=== PATIENT | female | born 1970 | race Caucasian/White ===

== ENCOUNTER 2016-09-05 00:19 | Inpatient (IN) | payer BC ==
[2016-09-05] MEDS ORDERED: ONDANSETRON 4 MG/2 ML VIAL ONE (00:39)
[2016-09-05] MEDS ORDERED: NS 1,000 ML IV ONE (00:46)
[2016-09-05] MEDS ORDERED: HYDROmorphONE/DILAUDID 1 MG/ML SYR IVP ONE (00:46)
[2016-09-05] MEDS ORDERED: ONDANSETRON 4 MG/2 ML VIAL IVP ONE (00:55)
[2016-09-05] MEDS ORDERED: IOPAMIDOL (ISOVUE-300) 100 ML BTL IV ONE (00:57)
[2016-09-05 00:59] LABS: % IMMATURE GRANULYOCYTES 0.3 % (0.0-1.1); ABSOLUTE IMMATURE GRANULOCYTES 0.03 10^3/uL (0.00-0.10); ADD DIFF? NO; ADD MORPH? NO; ADD SCAN? NO; ATYPICAL LYMPHOCYTE FLAG 0 (0-99); FRAGMENT RBC FLAG 0 (0-99); HEMATOCRIT 46.3 % (38.0-47.0); HEMOGLOBIN 15.8 g/dL (12.6-16.3); LEFT SHIFT FLG 30 (0-99); LIPEMIA HEMOLYSIS FLAG 90 (0-99); MEAN CELL HEMOGLOBIN 29.6 pg (27.9-34.1); MEAN CELL HEMOGLOBIN CONCENTR. 34.1 g/dL (32.4-36.7); MEAN CELL VOLUME 86.7 fL (81.5-99.8); MEAN PLATELET VOLUME 10.6 fL (8.7-11.7); PLATELET CLUMPS FLAG 0 (0-99); PLATELET COUNT 148 10^3/uL (150-400); RED BLOOD CELL COUNT 5.34 10^6/uL (4.18-5.33); RED CELL DISTRIBUTION WIDTH 13.2 % (11.5-15.2)
[2016-09-05 01:10] LABS: ALANINE AMINOTRANSFERASE 37 IU/L (9-52); ALBUMIN 4.8 g/dL (3.5-5.0); ALKALINE PHOSPHATASE 94 IU/L (38-126); ANION GAP 12 mEq/L (8-16); ASPARTATE AMINOTRANSFERASE 31 IU/L (14-46); BILIRUBIN,TOTAL 0.6 mg/dL (0.1-1.4); BILIRUBIN-CONJUGATED 0.4 mg/dL (0.0-0.5); BILIRUBIN-UNCONJUGATED 0.2 mg/dL (0.0-1.1); CALCIUM 9.1 mg/dL (8.5-10.4); CARBON DIOXIDE 25 mEq/l (22-31); CHLORIDE 107 mEq/L (97-110); CREATININE 0.7 mg/dL (0.6-1.0); GLOMERULAR FILTRATION RATE > 60; GLUCOSE 192 mg/dL (70-100); POTASSIUM 4.3 mEq/L (3.5-5.2); SODIUM 144 mEq/L (134-144); TOTAL PROTEIN 7.9 g/dL (6.3-8.2)
[2016-09-05] MEDS ORDERED: KETOROLAC 15 MG/1 ML SDV ONE (01:44)
[2016-09-05] MEDS ORDERED: LIDOCAINE 2% JELLY 5 ML TUBE ONE (01:55)
[2016-09-05] MEDS ORDERED: LORazepam 2 MG/ML INJ IVP ONE (02:39)
--- NOTE | 2016-09-05 03:11 | PDGENHP ---
History and Physical - Chief Complaint Acute abdominal pain - History of Present Illness Primary surgeon: Dr. Crump Primary oncologist: Dr. Shameka Warren in [facility] HPI: 45-year-old female presenting with acute abdominal pain characterized as sharp, located in the right upper abdomen, associated with constipation, nausea and nonbloody emesis. The patient reportedly vomited 6-7 times on the day of presentation. Her last meal was lasagna at approximately 4:00 p.m. and onset of symptoms was around 7:00 p.m.. She believes she vomited up her entire meal, she was not able to tolerate oral liquids or solids thereafter. Her symptoms have been somewhat alleviated by Toradol and Zofran received in the emergency department. she reports that the character of her symptoms are similar to those she experienced in 2016 with a small-bowel obstruction. She does endorse approximately 1 week worth of constipation with a very small bowel movement on the morning of this presentation. History Information - Allergies/Home Medication List Allergies/Adverse Reactions: CIPRO Allergy (Intermediate, Uncoded 06/04/15 00:04) Rash CLARITHROMYCIN Allergy (Mild, Uncoded 06/04/15 00:04) Vomiting TETRACYCLINE Allergy (Mild, Uncoded 06/04/15 00:04) Vomiting Home Medications: Cholecalciferol Vit D3 [Vitamin D3 2000 units] 3,000 units PO DAILY 03/10/15 [ Last Taken 06/03/15] Multivitamins [Multivitamin (*)] 1 each PO DAILY 03/10/15 [Last Taken 06/03/15] Acetaminophen [Tylenol 325mg (*)] 325 mg PO Q6 PRN 06/03/15 [Last Taken Unknown] Citalopram [CeleXA 20 MG] 40 mg PO DAILY 06/03/15 [Last Taken 06/03/15] Vitamin B Complex [B Complex] 1 each PO DAILY 06/03/15 [Last Taken 06/03/15] I have personally reviewed and updated: family history, medical history, social history, surgical history - Past Medical History Additional medical history: Ovarian cancer, previously treated with carbo Taxol in May 2013, as well as surgical debulking CAD-125 in 2014 was 21. Small- bowel obstruction in 2015 in 2016 - Surgical History Additional surgical history: Hysterectomy and BSO in 2013. Lysis of adhesions June 2015. Gastric sleeve resection. Appendectomy. Cholecystectomy - Family History Additional family history: sister with breast cancer. No recent sick family contacts with GI illnesses - Social History Smoking Status: Never smoked Alcohol Use: Occasionally Drug Use: None Additional social history: independent in her ADLs, recently return from a trip to [place] in July of 2016 Review of Systems ROS: 10pt was reviewed & negative except for what was stated in HPI & below Gastrointestinal: Reports: vomitting, abdominal pain, constipation, nausea Physical Exam Temp Pulse Resp BP Pulse Ox 36.2 C 62 16 88/66 L 95 09/05/16 00:26 09/05/16 00:26 09/05/16 00:26 09/05/16 00:26 09/05/16 00:56 Constitutional: no apparent distress, not in pain, uncomfortable, No chronically ill appearing Eyes: PERRL, anicteric sclera, EOMI Ears, Nose, Mouth, Throat: moist mucous membranes, hearing normal, ears appear normal, no oral mucosal ulcers Cardiovascular: regular rate and rhythym, no murmur, rub, or gallop, No edema Respiratory: no respiratory distress, no rales or rhonchi, clear to auscultation Gastrointestinal: tenderness ( right upper quadrant), No normoactive bowel sounds ( hypoactive bowel sounds), No guarding, No distension Genitourinary: no bladder fullness, no bladder tenderness Neurologic: AAOx3, No facial droop Psychiatric: not encephalopathic, thought process linear, anxious, No agitated Lab Data & Imaging Review 09/05/16 00:44 09/05/16 00:44 WBC 10.59 10^3/uL (3.80-9.50) H 09/05/16 00:44 RBC 5.34 10^6/uL (4.18-5.33) H 09/05/16 00:44 Hgb 15.8 g/dL (12.6-16.3) 09/05/16 00:44 POC Hgb 16.7 gm/dL (12.3-15.9) H 09/05/16 00:43 Hct 46.3 % (38.0-47.0) 09/05/16 00:44 POC Hct 49 % (35.5-47.5) H 09/05/16 00:43 MCV 86.7 fL (81.5-99.8) 09/05/16 00:44 MCH 29.6 pg (27.9-34.1) 09/05/16 00:44 MCHC 34.1 g/dL (32.4-36.7) 09/05/16 00:44 RDW 13.2 % (11.5-15.2) 09/05/16 00:44 Plt Count 148 10^3/uL (150-400) L 09/05/16 00:44 MPV 10.6 fL (8.7-11.7) 09/05/16 00:44 Neut % (Auto) 83.1 % (39.3-74.2) H 09/05/16 00:44 Lymph % (Auto) 6.3 % (15.0-45.0) L 09/05/16 00:44 [place] % (Auto) 8.1 % (4.5-13.0) 09/05/16 00:44 Eos % (Auto) 1.9 % (0.6-7.6) 09/05/16 00:44 Baso % (Auto) 0.3 % (0.3-1.7) 09/05/16 00:44 Nucleat RBC Rel Count 0.0 % (0.0-0.2) 09/05/16 00:44 Absolute Neuts (auto) 8.80 10^3/uL (1.70-6.50) H 09/05/16 00:44 Absolute Lymphs (auto) 0.67 10^3/uL (1.00-3.00) L 09/05/16 00:44 Absolute Monos (auto) 0.86 10^3/uL (0.30-0.80) H 09/05/16 00:44 Absolute Eos (auto) 0.20 10^3/uL (0.03-0.40) 09/05/16 00:44 Absolute Basos (auto) 0.03 10^3/uL (0.02-0.10) 09/05/16 00:44 Absolute Nucleated RBC 0.00 10^3/uL (0-0.01) 09/05/16 00:44 Immature Gran % 0.3 % (0.0-1.1) 09/05/16 00:44 Immature Gran # 0.03 10^3/uL (0.00-0.10) 09/05/16 00:44 POC Sodium 144 mEq/L (134-144) 09/05/16 00:43 Sodium 144 mEq/L (134-144) 09/05/16 00:44 POC Potassium 4.2 mEq/L (3.3-5.0) 09/05/16 00:43 Potassium 4.3 mEq/L (3.5-5.2) 09/05/16 00:44 POC Chloride 104 mEq/L (96-108) 09/05/16 00:43 Chloride 107 mEq/L (97-110) 09/05/16 00:44 Carbon Dioxide 25 mEq/l (22-31) 09/05/16 00:44 Anion Gap 12 mEq/L (8-16) 09/05/16 00:44 POC BUN 23 mg/dL (7-23) 09/05/16 00:43 BUN 21 mg/dL (7-23) 09/05/16 00:44 Creatinine 0.7 mg/dL (0.6-1.0) 09/05/16 00:44 POC Creatinine 0.7 mg/dL (0.6-1.2) 09/05/16 00:43 Estimated GFR > 60 09/05/16 00:44 Glucose 192 mg/dL (70-100) H 09/05/16 00:44 POC Glucose 190 mg/dL (70-100) H 09/05/16 00:43 Calcium 9.1 mg/dL (8.5-10.4) 09/05/16 00:44 Total Bilirubin 0.6 mg/dL (0.1-1.4) 09/05/16 00:44 Conjugated Bilirubin 0.4 mg/dL (0.0-0.5) 09/05/16 00:44 Unconjugated Bilirubin 0.2 mg/dL (0.0-1.1) 09/05/16 00:44 AST 31 IU/L (14-46) 09/05/16 00:44 ALT 37 IU/L (9-52) 09/05/16 00:44 Alkaline Phosphatase 94 IU/L (38-126) 09/05/16 00:44 Total Protein 7.9 g/dL (6.3-8.2) 09/05/16 00:44 Albumin 4.8 g/dL (3.5-5.0) 09/05/16 00:44 Lipase 183.0 IU/L (23-300) 09/05/16 00:44 Beta HCG, Qual POSITIVE 09/05/16 00:44 Visualized and Interpreted imaging results: Yes Interpretation: abnormal appearing loops of bowel, distended Assessment & Plan Assessment: 45-year-old female presents with acute small bowel obstruction in the setting ovarian cancer Plan: 1. Small bowel obstruction. Acute, new problem this provider, further workup indicated. Most likely etiology is adhesions given her extensive past history of abdominal surgeries - get official read of CT of the abdomen - discussed with Gonzalo Ladd, emergency department provider, he advises me that Dr. Beavers has been consulted in this patient's care and will evaluate the patient in the a.m. - the patient does not currently have a surgical abdomen on physical exam - nasogastric tube has been placed, patient tolerating well - continue pain medication with IV Toradol, IV Dilaudid, Zofran and Ativan - continue IV normal saline with potassium, NPO - patient has limited IV access through 1 peripheral IV, reported poor access in past, if the patient loses this access PICC line will be ordered - unclear relevance of positive beta HCG qualitative test, get quantitative level, patient notified - order CA-125 level - get outside records from patient regarding CA-125 level within the past year for comparison 2. Ovarian cancer. Status post chemotherapy in May 2013 with primary surgery - will get oncology consultation in the a.m. to assist in defining whether further staging evaluation is indicated pending the CA-125 results as well as the official read of the abdominal CT which certainly has abnormalities in the loops of bowel but it is unclear whether malignancy is involved Diet. NPO Prophylaxis. High risk patient, SCDs, pharm contraindicated given possible surgery Code. Full Disposition. Anticipated discharge is uncertain this time, anticipated length stay is greater than 48 hours warranting inpatient admission status for reasonable known medical necessity including acute small bowel obstruction requiring NPO status, IV pain medications, IV fluids, possible surgery.
[2016-09-05] MEDS: KETOROLAC 30 MG/1 ML SDV IVP PRN ×2 (04:19→16:01)
[2016-09-05] MEDS: ONDANSETRON 4 MG/2 ML VIAL IVP PRN ×2 (04:20→16:01)
[2016-09-05] MEDS: NS W/ 20 KCl/L 1,000 ML IV SCH ×2 (04:21→23:46)
[2016-09-05 05:17] LABS: % IMMATURE GRANULYOCYTES 0.5 % (0.0-1.1); ABSOLUTE IMMATURE GRANULOCYTES 0.04 10^3/uL (0.00-0.10); ADD DIFF? NO; ADD MORPH? NO; ADD SCAN? NO; ATYPICAL LYMPHOCYTE FLAG 0 (0-99); FRAGMENT RBC FLAG 0 (0-99); HEMATOCRIT 43.1 % (38.0-47.0); HEMOGLOBIN 14.4 g/dL (12.6-16.3); LEFT SHIFT FLG 40 (0-99); LIPEMIA HEMOLYSIS FLAG 80 (0-99); MEAN CELL HEMOGLOBIN 28.9 pg (27.9-34.1); MEAN CELL HEMOGLOBIN CONCENTR. 33.4 g/dL (32.4-36.7); MEAN CELL VOLUME 86.4 fL (81.5-99.8); MEAN PLATELET VOLUME 10.7 fL (8.7-11.7); PLATELET CLUMPS FLAG 10 (0-99); PLATELET COUNT 115 10^3/uL (150-400); RED BLOOD CELL COUNT 4.99 10^6/uL (4.18-5.33)
[2016-09-05 05:24] LABS: ANION GAP 11 mEq/L (8-16); CALCIUM 8.3 mg/dL (8.5-10.4); CARBON DIOXIDE 21 mEq/l (22-31); CHLORIDE 109 mEq/L (97-110); CREATININE 0.6 mg/dL (0.6-1.0); GLOMERULAR FILTRATION RATE > 60; GLUCOSE 131 mg/dL (70-100); MAGNESIUM 1.7 mg/dL (1.6-2.3); POTASSIUM 4.3 mEq/L (3.5-5.2); SODIUM 141 mEq/L (134-144)
[2016-09-05 05:55] LABS: CANCER ANTIGEN 125 < 5.5 U/mL (0-35)
[2016-09-05] MEDS: HYDROmorphONE/DILAUDID 1 MG/ML SYR IVP PRN ×2 (08:19→18:44)
[2016-09-05] MEDS: LORazepam 2 MG/ML INJ IVP PRN ×3 (08:37→17:16)
--- NOTE | 2016-09-05 12:05 | GCON ---
[f rep st] CONSULTATION HISTORY OF PRESENT ILLNESS: This is a 45-year-old woman with a known history of ovarian cancer and small-bowel obstruction, treated last operatively by Dr. Riley Crump, who presents with a 3 hour history of abdominal pain, nausea and vomiting, following eating some lasagna that she had the day before. The patient says the pain is similar, but not quite the same as her obstruction last year. She requested an NG tube, which is putting out minimal. The patient has had a CT scan, which shows dilated loops of small bowel without a transition point, possible peritoneal implant by the umbilicus, but it is also possibly matted loop of small bowel with adhesive disease. The patient has not had any prodromal syndromes. She has not had any signs of recurrence of her ovarian cancer, although, positive test, quantitative test for HCG and CA-125 were not detectable. Last chemotherapeutic regimen was in 2013. PAST MEDICAL HISTORY: Significant for ovarian cancer, hypertension, obesity. PAST SURGICAL HISTORY: She has had previous surgeries of laparotomy, abdominal hysterectomy, salpingo-oophorectomy and retroperitoneal lymph node dissection. Subsequent laparoscopic gastric sleeve and most recent laparotomy with lysis of adhesions and repair of enterotomy in 2015. ALLERGIES: She has allergies to ciprofloxacin, clarithromycin and tetracycline. MEDICATIONS: At home include Sudafed, Zyrtec, Valtrex, Premarin vaginal cream, vitamin D, Tylenol, multivitamin, Celexa and vitamin B complex. FAMILY HISTORY: Significant for a sister with breast cancer. REVIEW OF SYSTEMS: abdominal pain. all others reviewed and are negative EXAM: VITAL SIGNS: Today, the patient has temperature of 36.6, heart rate of 63, blood pressure of 97/47, with a respiratory rate of 18, saturating 91% on room air. GENERAL: She is alert to person, place, and time. HEENT: Sclerae are anicteric. Oropharynx is moist without lesions. No JVD, thyromegaly, cervical or supraclavicular adenopathy. LUNGS: Clear bilaterally. HEART: Regular heart tones. ABDOMEN: Soft. Multiple scars from surgery, well healed. No abdominal tenderness, no distention, no hepatosplenomegaly. She has 2+/2+ femoral and dorsalis pedis pulses. Radial pulses. SKIN: No skin rashes. Normal skin turgor and tone. Good affect and mood. IMPRESSION: This is more likely gastroenteritis, than a small bowel obstruction. Agree with NG tube decompression. If she does not begin having bowel function tomorrow, would recommend a small bowel follow through. She may have ice chips at this point, and I will continue to follow her while she is here in the hospital. Greater than 35 minutes was spent with the patient, both in coordination of care , and [id number] evaluation. The patient understands the prognosis and is in agreement with the plan of care. /[id number]/MODL MTDD
--- NOTE | 2016-09-05 14:57 | HOSPPROG ---
Hospitalist Progress Note Assessment/Plan: 45-year-old female presents with acute small bowel obstruction in the setting if history of ovarian cancer Plan: 1. Small bowel obstruction. -CA-125 normal -Case discussed with Dr. Beavers who is in agreement with nonoperative management -ngt to lws 2. Ovarian cancer. Status post chemotherapy in May 2013 with primary surgery Diet. NPO Prophylaxis. High risk patient, SCDs, pharm contraindicated given possible surgery Code. Full Subjective: +flatus. improved abd pain. intermittent nausea and vomiting Objective: Vital Signs Temp Pulse Resp BP Pulse Ox 36.2 C 74 16 97/49 L 94 09/05/16 11:57 09/05/16 11:57 09/05/16 11:57 09/05/16 11:57 09/05/16 11:57 Laboratory Results 09/05/16 04:25 09/05/16 04:25 09/04/16 09/05/16 09/06/16 05:59 05:59 05:59 Intake Total 1075 Output Total 100 Balance 975 - Physical Exam Constitutional: no apparent distress, appears nourished, not in pain Cardiovascular: regular rate and rhythym, no murmur, rub, or gallop Respiratory: no respiratory distress, no rales or rhonchi, clear to auscultation Gastrointestinal: normoactive bowel sounds, soft, non-tender abdomen, no palpable masses, distension, No guarding, No rebound ICD10 Worksheet Patient Problems: Problems Problem Status Onset IV infiltrate Acute SBO (small bowel obstruction) Acute Abdominal pain Acute
[2016-09-05] MEDS: ONDANSETRON DISINTEGRATING 4 MG TAB PO PRN (18:44)
[2016-09-06] MEDS: KETOROLAC 30 MG/1 ML SDV IVP PRN ×3 (02:44→18:19)
[2016-09-06] MEDS: HYDROmorphONE/DILAUDID 1 MG/ML SYR IVP PRN ×3 (02:44→21:24)
[2016-09-06] MEDS: ONDANSETRON 4 MG/2 ML VIAL IVP PRN ×3 (02:50→13:01)
[2016-09-06] MEDS: PROMETHAZINE HCL 25 MG TAB PO PRN (03:54)
[2016-09-06 04:59] LABS: ANION GAP 6 mEq/L (8-16); CALCIUM 7.9 mg/dL (8.5-10.4); CARBON DIOXIDE 23 mEq/l (22-31); CHLORIDE 113 mEq/L (97-110); CREATININE 0.6 mg/dL (0.6-1.0); GLOMERULAR FILTRATION RATE > 60; GLUCOSE 89 mg/dL (70-100); MAGNESIUM 1.7 mg/dL (1.6-2.3); SODIUM 142 mEq/L (134-144)
[2016-09-06] MEDS: NS W/ 20 KCl/L 1,000 ML IV SCH ×3 (06:13→20:36)
[2016-09-06] MEDS: LORazepam 2 MG/ML INJ IVP PRN (11:11)
--- NOTE | 2016-09-06 11:30 | HOSPPROG ---
Hospitalist Progress Note Assessment/Plan: 45-year-old female presents with acute small bowel obstruction in the setting if history of ovarian cancer Plan: 1. Small bowel obstruction. -CA-125 normal -Continue ngt 2. Ovarian cancer. Status post chemotherapy in May 2013 with primary surgery 3. positive qual HCG with negative quant Diet. NPO Prophylaxis. High risk patient, SCDs, pharm contraindicated given possible surgery Will defer ordering a SBFT/imaging study to Dr. Ruthann Anton. Full Subjective: The NG tube is still in place and continues to put out fluid. Pain is improving with IV Toradol and antiemetics. last dose of IV Dilaudid was at 2 o'clock this morning. positive flatus. no bowel movement Objective: Vital Signs Temp Pulse Resp BP Pulse Ox 36.6 C 55 L 16 107/52 L 100 09/06/16 08:20 09/06/16 08:20 09/06/16 08:20 09/06/16 08:20 09/06/16 08:20 Laboratory Results 09/05/16 04:25 09/06/16 04:12 09/05/16 09/06/16 09/07/16 05:59 05:59 05:59 Intake Total 1075 1942 1850 Output Total 100 1150 Balance 396 390 1373 - Physical Exam Constitutional: no apparent distress, appears nourished, not in pain Ears, Nose, Mouth, Throat: other (ngt inplace) Gastrointestinal: soft, non-tender abdomen, no palpable masses, distension, other (hypoactive bowel sounds), No tenderness Skin: no rashes or abrasions, no fluctuance, no induration Neurologic: AAOx3, sensation intact bilaterally ICD10 Worksheet Patient Problems: Problems Problem Status Onset IV infiltrate Acute SBO (small bowel obstruction) Acute Abdominal pain Acute
--- NOTE | 2016-09-06 16:59 | SOAPPROG ---
SOAP Progress Note Assessment/Plan: Assessment/Plan: 45 yo woman with hx of ovarian cancer and adhesive sbo last year. Now presenting with gastroenteritis versus recurrent obstruction. Minimal flatus. No BM overnight RRR CTA Tender epigastrium NGT min output SBFT ordered and performed. The report and imaging do not support recurrent obstruction or ovarian ca Adv diet to clears with NGT clamped. Likely d/c tomorrow if tolerating po and pain/nausea abated 09/06/16 16:55 Objective: Vital Signs Temp Pulse Resp BP Pulse Ox 37.2 C 69 18 121/79 H 91 L 09/06/16 15:47 09/06/16 15:47 09/06/16 15:47 09/06/16 15:47 09/06/16 15:47 Laboratory Results 09/05/16 04:25 09/06/16 04:12 09/05/16 09/06/16 09/07/16 05:59 05:59 05:59 Intake Total 1075 1942 1850 Output Total 100 1150 800 Balance [id number] ICD10 Worksheet Patient Problems: Problems Problem Status Onset Abdominal pain Acute IV infiltrate Acute SBO (small bowel obstruction) Acute
[2016-09-06] MEDS: ONDANSETRON DISINTEGRATING 4 MG TAB PO PRN (20:36)
[2016-09-07] MEDS: HYDROmorphONE/DILAUDID 1 MG/ML SYR IVP PRN (00:23)
[2016-09-07] MEDS: ONDANSETRON 4 MG/2 ML VIAL IVP PRN (00:27)
[2016-09-07] MEDS: PROMETHAZINE HCL 25 MG TAB PO PRN (00:46)
[2016-09-07] MEDS: NS W/ 20 KCl/L 1,000 ML IV SCH ×2 (03:05→10:08)
[2016-09-07] MEDS: KETOROLAC 30 MG/1 ML SDV IVP PRN (03:05)
[2016-09-07] MEDS: LORazepam 2 MG/ML INJ IVP PRN (03:05)
[2016-09-07 05:17] LABS: ANION GAP 5 mEq/L (8-16); CARBON DIOXIDE 24 mEq/l (22-31); CHLORIDE 111 mEq/L (97-110); CREATININE 0.6 mg/dL (0.6-1.0); GLOMERULAR FILTRATION RATE > 60; GLUCOSE 83 mg/dL (70-100); MAGNESIUM 1.6 mg/dL (1.6-2.3); POTASSIUM 3.8 mEq/L (3.5-5.2); SODIUM 140 mEq/L (134-144)
[2016-09-07 06:26] VITALS: O2SAT 92
[2016-09-07 08:36] VITALS: BP 110/65; PULSE 54; RESP 18; TEMP 98.2
--- NOTE | 2016-09-07 09:14 | SOAPPROG ---
SOAP Progress Note Assessment/Plan: Assessment/Plan: 45 yo woman with hx of ovarian cancer and adhesive sbo last year. Now presenting with gastroenteritis versus recurrent obstruction. Multiple BM overnight SBFT no obstruction AVSS RRR CTA NT, ND NGT removed Diet advanced - limitations for diet and signs of recurrent obstruction discussed Verbal confirmation of understanding Okay for D/C F/U information in discharge if needed 09/06/16 16:55 09/07/16 09:12 Objective: Vital Signs Temp Pulse Resp BP Pulse Ox 36.8 C 54 L 18 110/65 92 09/07/16 08:34 09/07/16 08:34 09/07/16 08:34 09/07/16 08:34 09/07/16 08:34 Laboratory Results 09/05/16 04:25 09/07/16 04:35 09/06/16 09/07/16 09/08/16 05:59 05:59 05:59 Intake Total 1942 5281 Output Total 1150 1999 Balance [id number] ICD10 Worksheet Patient Problems: Problems Problem Status Onset Abdominal pain Acute IV infiltrate Acute SBO (small bowel obstruction) Acute
--- NOTE | 2016-09-07 15:06 | GDS ---
[f rep st] DISCHARGE SUMMARY DISCHARGE DIAGNOSIS: Resolved nausea and vomiting, due to a gastroenteritis versus recurrent small bowel obstruction. CONSULTANTS: Dr. Pan Beavers, General Surgery. HOSPITAL COURSE AND STAY BY PROBLEM: Nausea and vomiting: The patient was admitted to the hospital on 09/05/2016 due to concerns for small bowel obstruction. She was placed n.p.o., an NG tube was p laced. An NG tube was ultimately clamped on the afternoon of September 06, 2016. A small bowel follow thr ough was done on 09/06/2016 that was negative for obstruction. On day of discharge she is toleratin g a diet and has resolution of her nausea, vomiting and abdominal pain. She does have a history of ovarian cancer which was appreciated. A CA-125 antigen was done and was negative at less than 5.5. PHYSICAL EXAM: VITAL SIGNS: On day of discharge blood pressure 110/65, pulse of 54, respiratory ra te 18, O2 saturation 92% on room air, temperature afebrile. GENERAL: In no acute distress. HEART: S1 and S2. LUNGS: Clear. ABDOMEN: Soft, nontender, nondistended, no guarding or rebound tender ness, normoactive bowel sounds. LABORATORY DATA: Pertinent labs and studies done this hospital stay, a small bowel follow-through d one 09/06/2016, refer to report. DISCHARGE MEDICATIONS: Please refer to discharge medication reconciliation in [facility] for details. DISCHARGE INSTRUCTIONS: The patient was discharged from the hospital, where she was urged to follow up with her primary care provider in 1-2 weeks for routine hospital followup. She should also foll ow up with her driver/guide as scheduled for routine followup. /[id number]/MODL
--- NOTE | 2016-09-16 16:57 | EDV ---
[f rep st] EMERGENCY DEPARTMENT REPORT DATE OF SERVICE: 09/05/2016 CHIEF COMPLAINT: Abdominal pain, nausea, and vomiting with a history of small bowel obstruction. HISTORY OF PRESENT ILLNESS: This is a 45-year-old female who presents to the emergency department for abdominal pain. Patient reports the onset of symptoms today. She has had associated nausea and vomiting. The vomiting is described as nonbloody. She denies specific precipitating factors. She denies alleviating factors. She denies other associated signs or symptoms including no fevers, no diarrhea, and no urinary symptoms. The patient does have a history of ovarian cancer and has had extensive abdominal surgery. She has had a previous small bowel obstruction and this feels similar. REVIEW OF SYSTEMS: A 10-point review of systems was obtained, and other than described above, was negative. PAST MEDICAL AND SURGICAL HISTORY: Reviewed in the EMR. MEDICATIONS: Reviewed in the EMR. PAST SOCIAL HISTORY: The patient is a nonsmoker, occasional use of alcohol. PHYSICAL EXAMINATION: VITAL SIGNS: Are reviewed by myself. GENERAL APPEARANCE : The patient is alert and nontoxic. EYES: PERRLA. ENT: Mucous membranes are moist. RESPIRATORY: There are no retractions, and the lungs are clear to auscultation. CARDIOVASCULAR: Regular rate and rhythm. GASTROINTESTINAL: Bowel sounds are diminished. The abdomen is mildly distended. There is diffuse tenderness. NEUROLOGIC: Alert and oriented x4. Strength and sensation intact and symmetrical. SKIN: Warm and dry. There are no noticeable rashes. MUSCULOSKELETAL: Neck is supple and nontender. EXTREMITIES : Symmetrical with full range of motion. Patient is ambulating on her own. PSYCHIATRIC: Patient is oriented x3, and there is no agitation. LABORATORY STUDIES: Abdomen CT scan are reviewed by myself. DISCUSSION: The patient is discussed with my secondary supervising physician, Dr. Leann Light. The patient presented to the emergency room for abdominal pain with nausea and vomiting. Ultimately, the patient appears to have small bowel obstruction. She will be admitted to the hospitalist service under the care of Dr. Negron. Patient's surgery group, Dr. Beavers, has been consulted and will see the patient in the morning. The plan has been discussed with the patient who voiced understanding and agreement with it. IMPRESSION: Small bowel obstruction. PHYSICIAN DOCUMENTATION: The patient was evaluated and managed by the Physician Training Analyst. My co- signature indicates that I have reviewed this chart and I agree with the findings and plan of care as documented. I am the secondary supervising physician. /[id number]/MODL MTDD
== END 2016-09-07 11:00 | disposition home or self-care (01) | DRG 390 ==
LOC: F1N 03:20
PROVIDERS: ADMIT Internal Medicine; ATTEND Internal Medicine
DX: K56.60 Unspecified intestinal obstruction (principal); K52.9 Noninfective gastroenteritis and colitis, unspecified; Z85.43 Personal history of malignant neoplasm of ovary; Z80.3 Family history of malignant neoplasm of breast
CPT/HCPCS: 82947-QW; 86304-90; 96374; J1170; J1885; J2060; J2405; Q9967